=== PATIENT | female | born 1965 | race Caucasian/White ===

== ENCOUNTER → 2016-12-12 | Outpatient (CLI) | payer BC | END | disposition home or self-care (01) | LOC: RAD 13:16 | PROVIDERS: ATTEND Family Medicine | DX: M51.36 Other intervertebral disc degeneration, lumbar region (principal); M25.561 Pain in right knee | CPT/HCPCS: 72100 ==

== ENCOUNTER 2018-06-05 11:28 | Inpatient (IN) | payer OTHER ==
[~2018-06-05] VITALS: Ht 144.8 cm; Wt 95.9 kg
[2018-06-05 13:05] LABS: BASOPHILS # (AUTO) 0.03 x10^3/uL (0-0.1); BASOPHILS % (AUTO) 0 % (0-1); EOSINOPHILS # (AUTO) 0.07 x10^3/uL (0-0.4); EOSINOPHILS % (AUTO) 1 % (1-7); LYMPHOCYTES # (AUTO) 2.32 x10^3/uL (1-3.4); LYMPHOCYTES % (AUTO) 34 % (22-44); MD NO; MEAN CORPUSCULAR HEMOGLOBIN 30.9 pg (27.0-34.8); MEAN CORPUSCULAR HGB CONC 34.1 g/dL (32.4-35.8); MEAN CORPUSCULAR VOLUME 90.6 fL (80-100); MEAN PLATELET VOLUME 8.3 fL (7.4-10.4); MONOCYTES # (AUTO) 0.39 x10^3/uL (0.2-0.8); MONOCYTES % (AUTO) 6 % (2-9); NEUTROPHILS % (AUTO) 59 % (42-75); PLATELET COUNT 275 x10^3/uL (130-400); RED CELL DISTRIBUTION WIDTH 13.1 % (9.6-15.2)
[2018-06-05 13:11] LABS: ACETONE, SERUM Negative (Negative)
[2018-06-05 13:15] LABS: PH, VENOUS 7.382 pH (7.320-7.420)
[2018-06-05 13:19] LABS: ALANINE AMINOTRANSFERASE 81 U/L (12-78); ALBUMIN 3.7 g/dL (3.4-5.0); ANION GAP 7 mmol/L (5-15); CALCIUM 9.2 mg/dL (8.5-10.1); CHLORIDE 104 mmol/L (98-107); CREATININE 0.68 mg/dL (0.55-1.02)
[2018-06-05 13:21] LABS: ALKALINE PHOSPHATASE 72 U/L (45-117); BILIRUBIN,TOTAL 0.3 mg/dL (0.2-1.0); TOTAL PROTEIN 8.3 g/dL (6.4-8.2)
[2018-06-05 13:36] LABS: MICROSCOPIC INDICATED
[2018-06-05] MEDS ORDERED: SODIUM CHLORIDE FLUSH 10ML SYR IVF ONE (14:00)
[2018-06-05] MEDS ORDERED: SODIUM CHLORIDE 0.9% 1,000ML IVBOLUS ONE (14:00)
[2018-06-05] MEDS ORDERED: APIXABAN 5 MG TABLET PO ONE (14:00)
[2018-06-05] MEDS ORDERED: DILTIAZEM 5 MG/ML, 5ML IVPush ONE (14:00)
[2018-06-05] MEDS ORDERED: SODIUM CHLORIDE 0.9% 1,000 ML IV ONE (14:00)
[2018-06-05] MEDS ORDERED: DILTIAZEM 5 MG/ML, 5ML ONE (14:03)
[2018-06-05] MEDS ORDERED: APIXABAN 5 MG TABLET ONE (14:03)
[2018-06-05 14:30] LABS: CULTURE INDICATED? YES
[2018-06-05 15:19] LABS: TROPONIN I < 0.015 ng/mL (0.000-0.045)
[2018-06-05] MEDS ORDERED: MORPHINE SULFATE 4 MG/ML, 1ML IVPush PRN (16:00)
[2018-06-05] MEDS ORDERED: ONDANSETRON 2MG/ML, 2ML IVP PRN (16:00)
[2018-06-05 16:54] LABS: CHOLESTEROL, TOTAL 137 mg/dL (140-239); TRIGLYCERIDES 404 mg/dL (50-200)
[2018-06-05 16:55] LABS: HEMOGLOBIN A1C 8.6 % (4.2-6.3)
[2018-06-05 16:58] LABS: CHOL/HDL RATIO 5.7; HDL CHOL % 18 % (28-40); HDL CHOLESTEROL (DIRECT) 24 mg/dL (40-60); TROPONIN I < 0.015 ng/mL (0.000-0.045)
[2018-06-05] MEDS: INSULIN LISPRO 100 UNITS/ML, PEN SQ-INSULIN SCH ×2 (17:02→20:32)
[2018-06-05] MEDS ORDERED: METF500T17 PO (17:04)
[2018-06-05] MEDS ORDERED: CARV6.252 PO (17:04)
[2018-06-05] MEDS ORDERED: ENAL10TA PO (17:06)
[2018-06-05] MEDS ORDERED: PRAV80TA2 PO (17:06)
[2018-06-05] MEDS ORDERED: GLIP5TAB10 PO (17:06)
[2018-06-05] MEDS ORDERED: CARVEDILOL 6.25 MG TABLET PO ONE (17:30)
[2018-06-05 19:38] VITALS: BP 118/74
[2018-06-05 19:44] LABS: TROPONIN I < 0.015 ng/mL (0.000-0.045)
[2018-06-05] MEDS: APIXABAN 5 MG TABLET PO SCH (19:52)
[2018-06-05] MEDS: ACETAMINOPHEN 325 MG TABLET PO PRN (19:52)
[2018-06-05] MEDS: SODIUM CHLORIDE FLUSH 10ML SYR IVF SCH (19:53)
[2018-06-05] MEDS ORDERED: PRAVASTATIN 40 MG TABLET PO SCH (21:00)
[2018-06-05 21:15] VITALS: BP 102/67
[2018-06-06 00:37] VITALS: BP 138/72
[2018-06-06 05:15] LABS: ANION GAP 9 mmol/L (5-15); CALCIUM 8.2 mg/dL (8.5-10.1); CHLORIDE 106 mmol/L (98-107); CREATININE 0.55 mg/dL (0.55-1.02)
[2018-06-06] MEDS ORDERED: DILTIAZEM 5 MG/ML, 5ML IVPush ONE (05:30)
[2018-06-06 05:39] VITALS: BP 120/84
[2018-06-06] MEDS ORDERED: ASPIRIN 81 MG TABLET EC PO SCH (06:00)
[2018-06-06] MEDS: INSULIN LISPRO 100 UNITS/ML, PEN SQ-INSULIN SCH ×4 (07:00→21:29)
[2018-06-06] MEDS ORDERED: ENALAPRIL 5MG TABLET ONE (07:41)
[2018-06-06] MEDS: APIXABAN 5 MG TABLET PO SCH ×2 (07:46→21:18)
[2018-06-06] MEDS: ENALAPRIL 10 MG TABLET PO SCH (07:46)
[2018-06-06] MEDS: CARVEDILOL 6.25 MG TABLET PO SCH ×2 (07:46→21:18)
[2018-06-06] MEDS: SODIUM CHLORIDE FLUSH 10ML SYR IVF SCH ×2 (07:48→21:18)
[2018-06-06 08:04] VITALS: BP 131/80
[2018-06-06] MEDS ORDERED: DIGOXIN 0.25 MG/ML, 2ML IVPush ONE ×2 (10:00→14:00)
[2018-06-06] MEDS ORDERED: MAGNESIUM SULFATE PMX 2GM/50ML 50 ML IV ONE (10:30)
[2018-06-06] MEDS: FLECAINIDE 100MG TABLET PO SCH ×2 (10:33→21:30)
[2018-06-06 13:15] VITALS: BP 102/71
[2018-06-06 13:52] VITALS: BP 101/70
[2018-06-06 20:47] VITALS: BP 137/72
[2018-06-06] MEDS: ATORVASTATIN 40 MG TABLET PO SCH (21:18)
[2018-06-07 01:50] VITALS: BP 111/69
[2018-06-07] MEDS: INSULIN LISPRO 100 UNITS/ML, PEN SQ-INSULIN SCH ×4 (07:00→21:01)
[2018-06-07 07:47] VITALS: BP 111/77
[2018-06-07] MEDS: ENALAPRIL 10 MG TABLET PO SCH (09:00)
[2018-06-07] MEDS ORDERED: ENALAPRIL 5MG TABLET ONE (09:16)
[2018-06-07] MEDS: SODIUM CHLORIDE FLUSH 10ML SYR IVF SCH ×2 (09:19→20:55)
[2018-06-07] MEDS: APIXABAN 5 MG TABLET PO SCH ×2 (09:20→20:54)
[2018-06-07] MEDS: CARVEDILOL 6.25 MG TABLET PO SCH ×2 (09:21→20:54)
[2018-06-07] MEDS: FLECAINIDE 100MG TABLET PO SCH ×2 (10:46→22:30)
[2018-06-07 14:48] VITALS: BP 94/62
[2018-06-07 20:37] VITALS: BP 109/75
[2018-06-07] MEDS: ATORVASTATIN 40 MG TABLET PO SCH (20:54)
[2018-06-08 02:00] VITALS: BP 113/78
[2018-06-08] MEDS: ACETAMINOPHEN 325 MG TABLET PO PRN (06:14)
[2018-06-08] MEDS: INSULIN LISPRO 100 UNITS/ML, PEN SQ-INSULIN SCH ×4 (07:00→20:51)
[2018-06-08 07:09] VITALS: BP 115/81
[2018-06-08] MEDS ORDERED: ENALAPRIL 5MG TABLET ONE (07:59)
[2018-06-08] MEDS ORDERED: REGADENOSON 0.4 MG/5 ML SYRINGE ONE (08:02)
[2018-06-08] MEDS: APIXABAN 5 MG TABLET PO SCH ×2 (08:04→20:49)
[2018-06-08] MEDS: SODIUM CHLORIDE FLUSH 10ML SYR IVF SCH ×2 (08:05→20:50)
[2018-06-08] MEDS: ENALAPRIL 10 MG TABLET PO SCH (08:05)
[2018-06-08] MEDS: CARVEDILOL 6.25 MG TABLET PO SCH ×2 (08:05→20:50)
[2018-06-08] MEDS ORDERED: AMINOPHYLLINE 25 MG/ML, 10ML ONE (08:37)
[2018-06-08] MEDS ORDERED: SODIUM CHLORIDE 0.9% 1,000 ML IV SCH (09:00)
[2018-06-08] MEDS ORDERED: PROPOFOL 10 MG/ML, 50ML ONE (09:04)
[2018-06-08 12:01] VITALS: BP 99/68
[2018-06-08] MEDS: FLECAINIDE 100MG TABLET PO SCH ×2 (12:02→22:50)
[2018-06-08 15:00] VITALS: BP 100/67
[2018-06-08 19:20] VITALS: BP 108/71
[2018-06-08] MEDS: ATORVASTATIN 40 MG TABLET PO SCH (20:49)
[2018-06-09 01:37] VITALS: BP 111/75
[2018-06-09] MEDS: ACETAMINOPHEN 325 MG TABLET PO PRN (04:43)
[2018-06-09] MEDS: INSULIN LISPRO 100 UNITS/ML, PEN SQ-INSULIN SCH (07:00)
[2018-06-09 08:00] VITALS: BP 114/75
[2018-06-09] MEDS: CARVEDILOL 6.25 MG TABLET PO SCH (08:02)
[2018-06-09] MEDS: SODIUM CHLORIDE FLUSH 10ML SYR IVF SCH (08:02)
[2018-06-09] MEDS: ENALAPRIL 10 MG TABLET PO SCH (08:02)
[2018-06-09] MEDS: APIXABAN 5 MG TABLET PO SCH (08:02)
[2018-06-09] MEDS ORDERED: LISI-424 PO (10:28)
[2018-06-09] MEDS ORDERED: FLEC100T PO (10:28)
[2018-06-09] MEDS ORDERED: APIX5TAB PO (10:28)
[2018-06-09] MEDS: FLECAINIDE 100MG TABLET PO SCH (10:30)
[2018-06-10] MEDS ORDERED: ENALAPRIL 5MG TABLET PO SCH (09:00)
== END 2018-06-09 12:00 | disposition home or self-care (01) | DRG 309 ==
LOC: ED 14:05 → EDIP 14:34 → 5SO 16:37 → DCLOUNGE 06-09 11:40
PROVIDERS: ADMIT Hospitalist; ATTEND Hospitalist
PROC: 5A2204Z Restoration of Cardiac Rhythm, Single (ICD-10-PCS; principal; 2018-06-08 09:00)
DX: I48.92 Unspecified atrial flutter (principal); D68.69 Other thrombophilia; Z68.42 Body mass index [BMI] 45.0-49.9, adult; I48.91 Unspecified atrial fibrillation; E66.01 Morbid (severe) obesity due to excess calories; E11.65 Type 2 diabetes mellitus with hyperglycemia; E78.5 Hyperlipidemia, unspecified; E83.42 Hypomagnesemia; E88.81 Metabolic syndrome and other insulin resistance; I10 Essential (primary) hypertension; Z79.01 Long term (current) use of anticoagulants; Z82.49 Family history of ischemic heart disease and other diseases of the circulatory system; Z90.710 Acquired absence of both cervix and uterus; Z91.14 Patient's other noncompliance with medication regimen; Z90.49 Acquired absence of other specified parts of digestive tract; Z79.899 Other long term (current) drug therapy; K59.00 Constipation, unspecified
CPT/HCPCS: 36415; 74022; 78452; 80048; 80053; 80061; 81001; 82010; 82803; 82962; 83036; 83605; 83690; 83735; 84443; 84484; 85025; 87086; 92960; 93005; 93017; 93306; 93312; 93321; 93325; 96361; 96374; 99291; G0378; J2704; J2785; A9502; C9898; J0280; J1160; J1815; J3475; J7030